=== PATIENT | female | born 1950 | race Caucasian/White ===

== ENCOUNTER 2017-01-05 12:28 | Emergency (ER) | payer OTHER ==
[~2017-01-05] VITALS: Ht 165.1 cm; Wt 90.0 kg
[~2017-01-05 12:28] MED LIST: ASPI81 PO; CLON-352 PO; HYDR12.56 PO; LOVA10TA; POTA-267 PO; TOPR50TA PO
[2017-01-05 12:32] VITALS: BP 187/98; PULSE 84; RESP 17; TEMP 98.6; O2SAT 97
[2017-01-05] MEDS ORDERED: METO25TA3 PO (14:11)
[2017-01-05] MEDS ORDERED: ASPI81CH CHEW (14:11)
[2017-01-05] MEDS ORDERED: CLON0.1T PO (14:11)
[2017-01-05] MEDS ORDERED: HYDR12.57 PO (14:11)
[2017-01-05] MEDS ORDERED: POTA-255 (14:11)
[2017-01-05] MEDS ORDERED: LOVA10TA PO (14:11)
--- NOTE | 2017-01-05 14:12 | PD ---
HPI Chief Complaint: Musculoskeletal Complaint Time Seen by Provider: 14:02 Travel History International Travel<30 days: No Contact w/Intl Traveler<30days: No Traveled to known affect area: No History of Present Illness HPI 66yo F with PMH of HTN presents to the ED with c/o right calf pain for unknown amount of pain. States she just noticed it and it is mainly posterior calf and posterior thigh. Denies any trauma, fever, chest pain, sob, n/v, abdominal pain , focal weakness or numbness, history of DVT/PE. Pain is increased with movement. PFSH Past Medical History Asthma: Yes Cancer: No Cardiovascular Problems: No Diminished Hearing: No Endocrine: No Genitourinary: No Hepatitis: No Hiatal Hernia: No Hypertension: Yes Immune Disorder: No Musculoskeletal: Yes (ARTHRITIS, RIGHT GROIN , LEG DIFFICULTY WALKING) Neurologic: Yes (NUEOPATHY MONIQUE HANDS--?CARPAL TUNNEL) Psychiatric: No Reproductive: No Respiratory: Yes Tetanus Vaccination: Unknown Influenza Vaccination: Yes ?: Not Menopausal: Yes : 2 Para: 2 Past Surgical History Abdominal Surgery: No AICD: No Body Medical Devices: NONE Cardiac Surgery: No Section: Yes Ear Surgery: No Endocrine Surgery: No Eye Surgery: No Genitourinary Surgery: No Gynecologic Surgery: Yes (C SECTION X2, TL) Hysterectomy: Yes Joint Replacement: No Oral Surgery: No Pacemaker: No Thoracic Surgery: No Social History Alcohol Use: No Tobacco Use: No Substance Use: No Allergies-Medications (Allergen,Severity, Reaction): Coded Allergies: No Known Allergies (Verified , 01/05/17) Reported Meds & Prescriptions Reported Meds & Active Scripts Active Reported Potassium (Potassium Gluconate) 600 Mg Tablet Lovastatin 10 Mg Tab 10 Mg PO DAILY Clonidine (Clonidine HCl) 0.1 Mg Tab 0.1 Mg PO BID Aspirin 81 Mg Chew 81 Mg CHEW DAILY Metoprolol Tartrate 25 Mg Tab 25 Mg PO BID Hydrochlorothiazide 12.5 Mg Cap 12.5 Mg PO DAILY Review of Systems Except as stated in HPI: all other systems reviewed are Neg Physical Exam Narrative GENERAL: 66yo F not in distress. SKIN: Focused skin assessment warm/dry. HEAD: Atraumatic. Normocephalic. NECK: Trachea midline. No JVD. CARDIOVASCULAR: Regular rate and rhythm. No murmur appreciated. RESPIRATORY: No accessory muscle use. Clear to auscultation. Breath sounds equal bilaterally. GASTROINTESTINAL: Abdomen soft, non-tender, nondistended. No rebound tenderness or guarding. MUSCULOSKELETAL: RLE: +TTP right calf and medial posterior thigh. No erythema. DP2+. Sensation intact. Muscle strength intact. NEUROLOGICAL: Awake and alert. No obvious cranial nerve deficits. Motor grossly within normal limits. Normal speech. PSYCHIATRIC: Appropriate mood and affect; insight and judgment normal. Data Data Last Documented VS Vital Signs Date Time Temp Pulse Resp B/P Pulse Ox O2 Delivery O2 Flow Rate FiO2 01/05/17 16:03 17 01/05/17 12:32 98.6 84 187/98 97 Orders Us Leg Venous Doppler (01/05/17 ) Acetaminophen (Tylenol) (01/05/17 14:15) MDM Medical Decision Making Medical Screen Exam Complete: Yes Emergency Medical Condition: Yes Differential Diagnosis DVT vs. musculoskeletal pain Narrative Course 66yo F with right calf pain for unknown amount of time. US Right lower extremity showed no DVT. Pt was given acetaminophen which helped with pain. Pt then states she has been painting a lot. Return precautions given. Diagnosis Primary Impression: Right leg pain Patient Instructions: General Instructions Departure Forms: Tests/Procedures Additional Instructions: Please follow up with your PMD in 3-7 days. Return to the ED if symptoms worsen. Med/Other Pt SpecificInfo: Prescription(s) given Scripts Acetaminophen (Tylenol)325 Mg Yht046 Mg PO Q6H PRN (PAIN SCALE 1 TO 4) #20 TAB Ref 0 Prov:aMrla Oliveira 01/05/17 Disposition: 01 DISCHARGE HOME Condition: Stable OliveiraMarla DO Jan 05, 2017 14:12
[2017-01-05] MEDS ORDERED: ACETAMINOPHEN 325 MG TAB PO ONE (14:15)
--- NOTE | 2017-01-05 15:22 | RADRPT ---
EXAM DATE/TIME: 01/05/2017 14:41 [facility] COMPARISON: No previous studies available for comparison. INDICATIONS : Right calf pain. MEDICAL HISTORY : Hypertension. Neuropathy. Asthma. Arthritis. Bilateral carpal tunnel. SURGICAL HISTORY : section. Hysterectomy. ENCOUNTER: Initial ACUITY: 4 - 6 days PAIN SCORE: 2/10 LOCATION: Right leg. TECHNIQUE: Venous ultrasound of the leg was performed from the inguinal ligament to the proximal calf. Real-shay e, color Doppler and spectral tracing, compression and augmentation techniques were used. FINDINGS: There is normal compressibility of the deep venous system from the inguinal region to the proximal ca lf. No echogenic clot is seen in the lumen of the common femoral, femoral, popliteal, and posterior tibial veins. There is a normal response of the venous system to proximal and distal augmentation an d respiration. CONCLUSION: Negative exam. No sonographic or Doppler findings of deep venous thrombosis. Walter Miguel MD on January 05, 2017 at 15:20 Board Certified Radiologist. This report was verified electronically.
[2017-01-05 16:03] VITALS: RESP 17
[2017-01-05] MEDS ORDERED: TYLE325T PO (17:07)
== END 2017-01-05 17:24 | disposition home or self-care (01) ==
LOC: NEPD 12:28
DX: M79.661 Pain in right lower leg (principal); J45.909 Unspecified asthma, uncomplicated; I10 Essential (primary) hypertension; M13.88 Other specified arthritis, other site; G62.9 Polyneuropathy, unspecified; Z79.82 Long term (current) use of aspirin; Z79.899 Other long term (current) drug therapy
CPT/HCPCS: 93971; 99283